=== PATIENT | female | born 1960 | race Caucasian/White ===

== ENCOUNTER → 2018-08-02 | Outpatient (CLI) | payer BC ==
--- NOTE | 2018-08-02 14:06 | Diagnostic Imaging Report ---
INDICATION: Routine screening. Comparison is made with prior study from 09/24/2015 and 05/08/2014. 2-D and 3-D bilateral screening mammography was performed. The current study was also evaluated with a Computer Aided Detection (CAD) system. FINDINGS: Both breasts demonstrate scattered fibroglandular densities. There is a focal somewhat nodular density in the right breast posterior depth just lateral to the nipple line on the CC view. No definite correlate is identified on the MLO view. Additional views are recommended. The left breast is unremarkable. The axillae are unremarkable. IMPRESSION: Right breast density. Additional views including spot compression and rolled CC views are recommended. ACR BI-RADS Category 0: Incomplete. (Needs additional imaging evaluation). Result letter will be mailed to the patient. Note: At least 10% of breast cancer is not imaged by mammography. Dictated by: Dictated on workstation # [id number]
== END ==
LOC: RAD 08:56
PROVIDERS: ATTEND Nurse Practitioner Family
DX: Z12.31 Encounter for screening mammogram for malignant neoplasm of breast (principal); R92.2 Inconclusive mammogram
CPT/HCPCS: 77067

== ENCOUNTER → 2018-08-30 | Outpatient (CLI) | payer BC ==
--- NOTE | 2018-08-30 16:11 | Diagnostic Imaging Report ---
INDICATION: Right breast density. Patient presents for additional views. COMPARISON: Correlation is made with a recent screening mammogram from 08/02/2018. EXAMINATION: 2D and 3D unilateral right diagnostic mammography was performed. Repeat CC as well as 90 degree lateral view, spot compression CC view and rolled CC views were obtained. FINDINGS: Additional views fail to demonstrate discrete mass. Area of nodularity in the right breast most likely represents superimposed fibroglandular tissue. No suspicious calcifications are seen. IMPRESSION: BI-RADS category 1 Additional views fail to demonstrate a discrete mass. Patient may return to routine annual screening mammography. Dictated on workstation # [id number]
== END ==
LOC: RAD 13:09
PROVIDERS: ATTEND Nurse Practitioner Family
DX: R92.2 Inconclusive mammogram (principal)